=== PATIENT | male | born 1980 | race Caucasian/White ===

== ENCOUNTER → 2022-01-03 10:15 | Outpatient (BNVA) | payer SELFPAY | PROVIDERS: Visit Provider Emergency Medicine | DX: S69.90XA Unspecified injury of unspecified wrist, hand and finger(s), initial encounter (principal); X58.XXXA Exposure to other specified factors, initial encounter | CPT/HCPCS: 73130 ==

== ENCOUNTER 2022-09-16 14:10 | Outpatient (CLI) | payer BC, SELFPAY ==
--- NOTE | 2022-09-16 | XR_ITS ---
WS: [id number] Left knee, AP and lateral views, 09/16/2022 Clinical Data: KNEE PAIN Comparison: None. Findings: No fractures or dislocations are seen. There is medial joint compartment narrowing with minimal irreg ularity of the articular surface of the medial femoral condyle. There may be a loose body in the cent ral portion of the left knee. The patella shows posterior superior spurring. The soft tissues are unr emarkable. 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
--- NOTE | 2022-09-16 | XR_ITS ---
WS: [id number] Right knee, AP and lateral standing views, 09/16/2022 Clinical Data: KNEE PAIN Comparison: None. Findings: No fractures or dislocations are seen. There is minimal irregularity of the articular surfaces of the medial and lateral tibial plateaus and adjacent femoral condyles. The patella shows a posterior supe rior spur. The soft tissues are unremarkable. XR/XR knee RT 1-2V 20934 Impression: Minimal osteoarthritis of the right knee Kellgren-Lanre Classification: grade 1 (doubtful): doubtful joint space narr owing and possible osteophytic lipping
--- NOTE | 2022-09-16 | XR_ITS ---
WS: [id number] Cervical spine, 3 views, 09/16/2022 Clinical Data: NECK PAIN Comparison: None. Findings: No compression fractures are seen. The disc heights are normal. There is no prevertebral so ft tissue swelling. The odontoid is unremarkable. The soft tissues of the neck and the lung apices ar e normal. XR/XR cervical spine 3V* [id number] Impression: Negative cervical spine.
== END 2022-09-16 14:11 | disposition home or self-care (01) ==
LOC: RAD 14:18
PROVIDERS: Visit Provider Nurse Practitioner Family
DX: M54.2 Cervicalgia (principal); M17.0 Bilateral primary osteoarthritis of knee
CPT/HCPCS: 72040; 73560

== ENCOUNTER → 2022-10-16 09:37 | Outpatient (BNVA) | payer BC, SELFPAY | PROVIDERS: Referring Provider Family Medicine; Visit Provider Specialist | DX: M17.0 Bilateral primary osteoarthritis of knee | CPT/HCPCS: 73560; 73565 ==

== ENCOUNTER 2022-11-19 14:25 | Outpatient (CLI) | payer BC, SELFPAY ==
--- NOTE | 2022-11-19 15:15 | MR_ITS ---
WS: [id number] MRI RIGHT KNEE HISTORY: knee pain COMPARISON: Radiographs 10/16/2022 Anterior cruciate ligament: Mucoid degeneration. No tear. Posterior cruciate ligament: Intact. Medial collateral ligament: Normal. Posterior lateral corner structures: Intact. Medial menisci: Complex tear with both horizontal and vertical components involving the posterior hor n mid body. Blunting of the free edge. There is also increased signal extending into the periphery of the meniscal root. Lateral meniscus: Intact. Normal signal, size and shape. Extensor mechanism: Distal quadriceps tendon and patellar tendons are intact. Fluid and soft tissue: Very small suprapatellar joint effusion. Very small Moran's cyst. Osseous and articular structures: Patellofemoral compartment: Normal. Medial compartment: Mild narrowing the medial compartment. Focal superficial defects in the cartilage at the site of the meniscal tear. No full-thickness defects and no marrow edema. Additional more pro nounced degenerative changes involving the posterior medial tibial plateau. There are subchondral cys tic changes in the posterior tibial plateau extending into the metaphysis. Lateral compartment: Very mild chondromalacia. No full-thickness defects. There is a small subchondral cyst at the fibular head and in the posterior lateral tibial plateau. IMPRESSION: 1. Mucoid degeneration within the ACL. 2. Complex tear involving the posterior horn of the medial meniscus, horizontal and vertical componen ts in the posterior horn and the mid body with additional peripheral abnormal signal towards the meni scal root. 3. Superficial cartilage defects in the medial posterior compartment at the site of the meniscal tear . 4. Small suprapatellar joint effusion and small Moran's cyst.
== END 2022-11-19 14:26 | disposition home or self-care (01) ==
PROVIDERS: PCP Specialist; Visit Provider Specialist
DX: S83.231A Complex tear of medial meniscus, current injury, right knee, initial encounter (principal); X58.XXXA Exposure to other specified factors, initial encounter; M23.8X1 Other internal derangements of right knee; M71.21 Synovial cyst of popliteal space [Baker], right knee
CPT/HCPCS: 73721

== ENCOUNTER 2023-02-14 06:27 | Day surgery (SDC) | payer BC, SELFPAY ==
[2023-02-14] VITALS (10 sets, daily range): BP systolic 110–168; BP diastolic 67–104; PULSE 63–81; RESP 16–22; TEMP 36.1–36.6; O2SAT 90–99; BMI 38.1
[2023-02-14] MEDS: acetaminophen 1,000 MG/100 ML PIGGYBACK 400 MG IV (06:56)
[2023-02-14] MEDS: ketorolac 30 mg/mL INJ IVP (06:57)
[2023-02-14] MEDS: sodium chloride 0.9% 1,000 ML 30 ML IV (06:58)
--- NOTE | 2023-02-14 07:19 | ANES.PREANE2 ---
Pre-Anesthetic Assessment Height/Weight: Height 1.98 m Weight 149.685 kg Temp Pulse Resp BP Pulse Ox O2 Del Method 97.1 F L 70 16 168/104 96 Room Air 02/14/23 06:42 02/14/23 06:42 02/14/23 06:42 02/14/23 06:42 02/14/23 06:42 02/14/23 06:42 Operation Date: 02/14/23 08:05 Proposed Procedures p Right Knee Diagnostic & Arthroscopy w/ partial Medial Menisectomy(Right) - Juan Jose Velez DO Familial anesthetic complications: None Was Beta Kendal taken within 24 hours: N/A Was Clonidine taken within 24 hours: N/A Last intake: Intake Last Liquid Date 02/13/23 Last Liquid Time 21:00 Last Solid Date 02/13/23 Last Solid Time 19:00 Social No alcohol and No tobacco Exam alert, oriented x 3, clear to auscultation bilaterally and regular rate & rhythm Airway Mallampati: Class IV Dentition: other (2 upper teeth missing (R)) Comments: Comments: Full gerardo Metabolic Morbid Obesity Anesthetic Plan ASA status: 2 Anesthesia: General Risk of > 500 ml blood loss (7ml/kg in children): No Medications/Allergies Home Medications Medication Instructions Recorded Confirmed Last Taken Type ibuprofen 200 mg capsule 600 mg PO Q6H PRN Pain 12/18/22 02/14/23 02/12/23 History Allergies Allergy/AdvReac Type Severity Reaction Status Date / Time No Known Allergies Allergy Verified 02/14/23 06:38 Current Medications Generic Name Dose Route Start Last Admin Trade Name Freq PRN Reason Stop Dose Admin Sodium Chloride 1,000 mls @ 30 mls/hr 02/14/23 06:30 02/14/23 06:58 Sodium Chloride 0.9% IV 02/15/23 06:29 30 mls/hr .Q24H DIOMEDES Administration PFS Anesthesia Social History Smoking and tobacco/nicotine status: current every day tobacco/nicotine user smokeless tobacco Smokeless tobacco user: chewing tobacco Smokeless tobacco details: 1 can a week Alcohol intake: current Alcohol intake frequency: few times a week Substance/Drug Use: never Data Anesthesia Cardiac Studies: No Data to Display
--- NOTE | 2023-02-14 08:21 | W.PM.OPSUD ---
Surgery/Procedure H&P Update DATE OF PROCEDURE: February 14, 2023 DATE H&P PERFORMED: 01/24/23 H&P UPDATE INFORMATION: I have reviewed H&P completed within last 30 days, I have examined patient prior to procedure and No changes to prior documentation PREOP DIAGNOSIS: Right knee medial meniscus tear PRIMARY INDICATION FOR PROCEDURE: Right knee medial meniscus tear PLANNED PROCEDURE: Operation Date: 02/14/23 08:05 Proposed Procedures p Right Knee Diagnostic & Arthroscopy w/ partial Medial Menisectomy(Right) - Juan Jose Velez DO
[2023-02-14] MEDS: ceFAZolin 3,000 MG in sodium chloride 0.9% (plus) 100 ML 200 MG IV (08:40)
[2023-02-14] MEDS: lidocaine-epi 2% 20 mL INJ 40 ML INJECTION (09:51)
--- NOTE | 2023-02-14 09:57 | P.BOP_ITS ---
Date of Procedure: 02/14/2023 Surgeon: Juan Jose Velez DO Director Of Elementary Education(s): None Procedure(s) performed: Right knee diagnostic and surgical arthroscopy with partial medial meniscectomy Right knee diagnostic and surgical arthroscopy with ACL debridement Right knee diagnostic and surgical arthroscopy with extensive synovectomy (medial, lateral, patellofemoral compartments) Right knee diagnostic and surgical arthroscopy with medial and patellofemoral compartment chondroplasties. Findings of the procedure(s): Patient found to have medial meniscus tear as well as chondromalacia predominantly the medial and patellofemoral compartment as well as extensive synovitis and degenerative tearing of the ACL, procedure went as planned with no complications Estimated blood loss: 2 mL Specimen(s) removed: None Post-operative diagnosis: Right knee medial meniscus tear and medial and patellofemoral compartment chondromalacia, ACL degenerative tearing, extensive synovitis
--- NOTE | 2023-02-14 10:05 | ANE.PACU2 ---
Inpatient post-anesthesia follow up: Airway intact: Yes Vital signs: Temperature 97 F Pulse Rate 67 Respiratory Rate 16 Blood Pressure 119/76 Pulse Oximetry 99 Oxygen Delivery Me thod Nasal Cannula Oxygen Flow Rate 3 Fraction of Inspir ed Oxygen Hydration adequate: Yes Nausea and vomiting: No Pain level: 1 Mental status: Baseline
--- NOTE | 2023-02-14 10:23 | PM.OP ---
Operative Report Date of procedure: February 14, 2023 Surgeon: Juan Jose Velez DO Procedure: Preoperative diagnosis: Right knee medial meniscus tear Post-op diagnosis: Right?knee?medial meniscus tear Right?knee?extensive synovitis Right?knee?Medial and patellofemoral chondromalacia Right knee ACL partial tearing Procedure done: Right?knee?diagnostic and surgical arthroscopy partial medial meniscectomy Right?knee?diagnostic and surgical arthroscopy with extensive synovectomy of the medial lateral and patellofemoral compartments Right?knee?diagnostic and surgical arthroscopy with medial and patellofemoral compartment chondroplasty Right knee diagnostic and surgical arthroscopy with ACL debridement Surgeon: Juan Jose Velez DO Estimated blood loss: 2mL Tourniquet: No tourniquet was used IV fluids: See anesthesia record Complications: None Findings: See operative report narrative Condition: stable Disposition: same day Brief History: Patient is a 42-year-old male with right?knee?pain.? Patient has failed conservative treatment who has been worked up for right??knee?pain in the outpatient setting. MRI findings consistent with tear of the medial meniscus. talked in the office about treatment options patient would like to proceed with a right?knee?diagnostic and surgical arthroscopy with partial medial meniscectomy vs repair.? Patient understand the ins and outs of the procedure the risk benefits complication alternatives to treatment options.? Understanding risk of surgery they agree to proceed with surgical intervention.? Patient understand this may not provide patient with complete symptomatic relief of? pain as patient does have some underlying arthritis.? Understanding this and patient agree to proceed with surgical intervention all questions answered. Procedure: Patient seen and evaluated in the preoperative holding area.? Consent was reviewed and signed with patient.? Correct extremity was then marked.? Patient seen evaluated Anesthesia Department once cleared for surgery patient was taken back to the operative suite.? Patient was transported onto the OR table in supine position.? All bony prominences well-padded patient was appropriate secured to the bed.? Once appropriately anesthetized a nonsterile tourniquet was applied to the right thigh.? The right lower extremity was then prepped and draped in standard orthopedic fashion.? Final timeout performed.? Patient received appropriate preoperative antibiotics. Patient received local anesthetic of lidocaine with epinephrine into the joint as well as around the portal sites.? No tourniquet was inflated A standard 2 portal vertical incision diagnostic and surgical arthroscopy of the right?knee?was performed in standard fashion.? Small stab incision made in the inferolateral portal introduced trocar and arthroscope into the suprapatellar pouch.? Suprapatellar pouch was subsequently visualized and found to have significant synovitis but no loose bodies.? Patient had noticeable significant inflamed infrapatellar fat pad and thickening hypertrophic within the patellofemoral compartment.? ?The medial gutter was free of loose bodies I then introduced the arthroscope into the medial compartment.? Within the medial compartment I then established my inferior medial working portal utilizing spinal needle outside in technique.? Once established I then visualized our articular cartilage of the medial compartment with a valgus stress.? Patient was found to have grade 3 chondromalacia throughout the medial compartment.? Next I inspected the meniscus.? With an arthroscopic probe was utilized to visual? all aspects of the meniscus.? Meniscal root was found to be intact.? Meniscus was found to be torn at the body to posterior horn junction.? I then subsequently introduced a basket forceps as well as arthroscopic shaver to perform a partial medial meniscectomy to stable meniscal tissue and then utilized a thermal wand to anneal the edges.? Next, I then performed a synovectomy of the medial compartment.? Given patient's chondromalacia there was areas of unstable articular cartilage and I subsequently performed a chondroplasty with arthroscopic shaver and thermal wand.? This completed medial compartment work. Next a introduced the arthroscope to the intercondylar notch.? PCL was intact, there was partial tearing of the ACL I utilized thermal wand and arthroscopic shaver to debride the ACL. The core central fibers were intact. Patient had significant thickening of the infrapatellar fat pad spanning into the medial and lateral compartments.? I then performed an extensive synovectomy with the arthroscopic shaver of the patellofemoral medial and lateral compartments as well as the intercondylar notch. Next I introduced the arthroscope into the lateral compartment the lateral compartment was found to have grade 1-2chondromalacia.? Lateral meniscus was found to be intact.? The root was intact.? Given the 1-2chondromalacia there is no unstable cartilage pieces to perform chondroplasty.? This completed my work of the lateral compartment and then performed a synovectomy of the lateral compartment.? Next of the arthroscope was placed into the lateral gutter and this was free of loose bodies.? Finally I reintroduced the arthroscope into the patellofemoral compartment.? The patellofemoral was found to have grade 3 chondromalacia of the patellofemoral compartment.? At this point I utilized arthroscopic shaver as well as thermal wand to perform extensive synovectomy of the patellofemoral compartment. This completed my work of the patellofemoral space.? I then switch my portal sites to the medial working portal.? Completed the rest of my synovectomy and the rest of my examination arthroscopy was normal. All fluid was suctioned from the joint.? ?All instruments were withdrawn.? Portal sites were closed with interrupted nylon suture.? portal sites were then covered with with Xeroform 4 x 4's ABD Curlex and Mauro wrap.? Patient was then subsequently awakened from anesthesia and taken to PACU in stable condition. Disposition: Patient taken to PACU in stable condition recovering well.? Will receive appropriate discharge structure as well as pain medication postoperatively as well as? DVT prophylaxis.we will have patient follow-up with us in the office in 2 weeks.? We will weightbearing as tolerated to the right lower extremity.? Patient understands and agrees with current plan.? All questions answered.
[2023-02-14] MEDS: HYDROcodone-acetaminophen 5-325 mg Tablet 1 TAB PO (11:08)
--- NOTE | 2023-02-14 11:17 | SUR.PHASEII ---
1040 Talked to patient and significant other about patient needing a sleep study per pilar fowler CRNA in OR and both verbalized understanding
== END 2023-02-14 12:00 | disposition home or self-care (01) ==
PROVIDERS: PCP Nurse Practitioner; Visit Provider Student in an Organized Health Care Education/Training Program
PROC: (CPT 29870; principal; 2023-02-14 07:55)
PROC: (CPT 29876; 2023-02-14 07:55)
PROC: (CPT 29888; 2023-02-14 07:55)
DX: S83.241A Other tear of medial meniscus, current injury, right knee, initial encounter (principal); X58.XXXA Exposure to other specified factors, initial encounter; E66.01 Morbid (severe) obesity due to excess calories; Z68.38 Body mass index [BMI] 38.0-38.9, adult; F17.220 Nicotine dependence, chewing tobacco, uncomplicated
CPT/HCPCS: 29876; 29881; J0131; J0690; J1885; J2250; J2704; J3010; J7030